=== PATIENT | female | born 1975 ===

== ENCOUNTER 2024-01-18 06:16 | Emergency (ER) | payer OTHER, SELFPAY ==
[2024-01-18 06:23] VITALS: BP 135/85; BMI 39.7
--- NOTE | 2024-01-18 06:36 | EDRN ---
the pt is calm, pleasant, and cooperative with staff, the pt was compliant with changing into paper scrubs with this RN and Frances PCT present, the pt changed into paper scrubs herself, the pt keeps repeating to this RN, 'I miss my daddy, i just
want to go home and be with my daddy, i just want to , i miss my daddy i miss my daddy', the pt started to hysterically cry, this RN offered the pts tissues and tried to talk the pt through deep breathing exercises, this RN noticed that the pt
has cut hernández on her left wrist, this RN asked the pt about them and the pt stated, 'Oh that's from last night i just wanted to see if the lord would take me, apparently not', no bleeding or drainage from left wrist cut site, the pts lips are dry
and cracked, one to one observation maintained, Dr. Kaiser made aware of the situation
--- NOTE | 2024-01-18 06:40 | EDRN ---
the pt continues to cry with her head in her hands stating to this RN, 'I just want to be with my daddy he was my strength he was my strength', the pt then quickly perked up and wiped her tears off and stated cheerfully, 'Okay so i'm all good now so
i can go home?', this RN notified the pt that she would have to be evaluated by the provider first, the pt is agreeable to this, one to one observation maintained, will continue to monitor the pt closely
[2024-01-18 06:51] LABS: % Basophils 1.4 % (0-2); % Eosinophils 2.6 % (0-6); % Immature Granulocytes 0.5 % (0-0.5); % Lymphocytes 34.9 % (20.5-51.1); % Monocytes 5.6 % (1.7-9.3); Absolute Basophils 0.1 10^3/uL (0-0.2); Absolute Eosinophils 0.2 10^3/uL (0-0.7); Absolute Lymphocytes 2.6 10^3/uL (1.2-3.4); Absolute Monocytes 0.4 10^3/uL (0.1-0.6); Hematocrit 39.8 % (37.0-47.0); Hemoglobin 13.8 g/dL (12.0-16.0); Mean Corp Hgb Conc. 34.7 g/dL (33.0-37.0); Mean Corpuscular Hgb 30.9 pg (27.0-31.0); Mean Corpuscular Volume 89.2 fL (81.0-99.0); Mean Platelet Volume 8.5 fL (7.4-10.4); Nucleated Red Blood Cells % 0 %; Platelet Count 367 10^3/uL (130-400); Red Blood Cell Count 4.46 10^6/uL (4.20-5.40); Red Cell Dist. Width 12.6 % (11.5-14.5); White Blood Cell Count 7.3 10^3/uL (4.8-10.8)
[2024-01-18] MEDS: NSS 1000 IV (07:02)
[2024-01-18 07:03] LABS: HCG, Serum Qualitative Screen Negative
[2024-01-18 07:06] LABS: ALT (SGPT) 19 U/L (0-35); AST (SGOT) 27 U/L (14-36); Acetaminophen < 10 ug/ml (10-30); Albumin 4.3 g/dl (3.5-5.0); Alcohol 154 mg/dl; Alkaline Phosphatase 87 U/L (38-126); Blood Urea Nitrogen 10 mg/dl (7-17); Calcium 8.8 mg/dl (8.4-10.2); Carbon Dioxide 25 mmol/L (22-30); Chloride 108 mmol/L (98-107); Estimated Creatinine Clearance 121 ml/min; Glucose 97 mg/dl (70-99); Potassium 3.7 mmol/L (3.5-5.1); Sodium 141 mmol/L (135-145); Total Bilirubin 0.2 mg/dl (0.2-1.3); Total Protein 6.9 g/dl (6.3-8.2); eGFR > 60.00
[2024-01-18 07:09] LABS: COVID-19 Antigen Negative (Negative)
--- NOTE | 2024-01-18 08:31 | ED.GENMED ---
History of Present Illness
General
Chief Complaint: Suicidal Ideation
Source: patient
Exam Limitations: none
Time Seen by Provider: 01/18/24 08:21
Travel History
Have you had any contact with someone who has COVID-19?: No
Do you have any symptoms of coronavirus? Fever > 100 degrees, chills, cough, shortness of breath, sore throat, loss of taste or smell, muscle aches, or headache?: No
History of Present Illness
History of Present Illness:
48-year-old female brought here after 302 paperwork is filled out. She lost her father 5 months ago. She has been having trouble dealing with it. She was expressing thoughts of killing herself to her . Her describes her rummaging
through the bags in the house looking for the firearms. She found a firearm but there is no ammunition. There is cuts noted on her left wrist. When this provider asked her about the cut she states she cut herself cooking. Patient denies current
suicidal thoughts or homicidal thoughts. She does admit to drinking least a bottle of wine last night. No chest pain or shortness of breath. She has a history of ADHD and is on Vyvanse.
Phy Exam
Physical Exam
Physical Exam:
General: Well-appearing female no acute respiratory distress HEENT: Normocephalic atraumatic
Psychiatric exam: Somewhat of a bizarre affect. Denying thoughts of harming self or others currently. Admits to depression. Downplaying cuts on wrist as if she was cooking. These do appear to be self-inflicted wounds in the transverse direction
across volar distal wrist. These are very superficial.
Heart: Regular rate and rhythm no murmurs
Lungs: Clear to auscultation bilaterally no wheezing
Extremities: No cyanosis
Course
Orders/Labs/Results
Orders:
Orders
01/18/24 06:22
Test Result ONCE
01/18/24 06:26
Acetaminophen Urgent
Alcohol Urgent
Beta Hcg Serum Qualitative Screen [HCG, Serum Qualitative Screen] Urgent
COVID-19 Antigen Urgent
Source: Nasal Swab
Complete Blood Count/With Diff Urgent
Comprehensive Metabolic Panel Urgent
01/18/24 06:34
1:1 Observation - Suicide/ Violent Behavior As Directed
01/18/24 06:48
0.9% Sodium Chloride 1000 ml [Nss] 1,000 ml IV BOLUS
01/18/24 10:11
Fentanyl, Urine Urgent
Urine Drug Abuse Screen Urgent
Date Specimen was Collected: 01/18/24
Time Specimen was Collected: 07:44
01/18/24 13:46
Acetaminophen [Tylenol] 650 mg PO NOW STA
Abnormal Lab Results
01/18/24 01/18/24
06:26 10:11
Chloride 108 H mmol/L
(98-107)
Acetaminophen < 10 L ug/ml
(10-30)
Ur Amphetamines Screen Positive H
(Negative)
01/18/24 06:26
01/18/24 06:26
Vital Signs
Initial and Last Documented VS:
Initial Vital Signs
Temp Pulse Resp BP Pulse Ox
98.1 F 93 16 135/85 97
01/18/24 06:23 01/18/24 06:23 01/18/24 06:23 01/18/24 06:23 01/18/24 06:23
Last Documented Vital Signs
Temp Pulse Resp BP Pulse Ox
98.1 F 93 16 135/85 97
01/18/24 06:23 01/18/24 06:23 01/18/24 06:23 01/18/24 06:23 01/18/24 06:23
MDM/Problems Addressed
Differential Diagnosis Includes:
Patient here under 302 for suicidal thoughts and threats. I suspect self-inflicted wounds to left wrist. Description on triage note said she was rummaging through bags to find firearms. Medically she was tested for COVID which is negative labs
reviewed without significant finding. Blood alcohol level is 154. Patient's father recently. She is at higher risk. Waiting for telepsych for evaluation suspect she would benefit from inpatient psychiatric care
*Critical Care Note
Total Time (30-74mins, 75-104mins- exclusive of procedures): Not Applicable
Update Note
Update Note:
Evaluated by telepsych who recommended upholding 302. Patient is at high risk for harming herself and she is unstable with her mental health. Will continue to uphold 302 and wait placement for inpatient psychiatric treatment. Medically she is
cleared and stable.
ED Attending Note
-
Portions of this chart may have been created with voice recognition software.� Occasional wrong word or��sound alike� substitutions may have occurred due to the inherent limitations of voice recognition software.
Discharge Plan
Departure
Patient Disposition: Psych Facility
Date of Disposition: 01/18/24
Time of Disposition: 10:16
Patient with high blood pressure during this ER visit?: No
Discharge Problem:
Suicidal ideation
Referrals:
UNKNOWN - PT NOT,INTERVIEWE [Family Provider] -
Activity Restrictions/Additional Instructions:
Please continue to seek treatment per inpatient psychiatric department
Interventions
Interventions:
*Risk Screen - Suicide Last Done: 01/18/24 06:23
*General Assessment Last Done: 01/18/24 06:23
*Neglect/Abuse Screening Last Done: 01/18/24 06:23
ED- Fall Risk Assessment Last Done: 01/18/24 06:23
*ED COVID-19 Vaccine History Last Done: 01/18/24 06:23
ED-Psychological Assessment Last Done: 01/18/24 06:23
Discharge Date and Time
Print Language: SRI LANKAN
--- NOTE | 2024-01-18 08:34 | EDRN ---
Domenic GUTIERRES currently at the pts bedside speaking with the pt, this RN called crisis for an update and the pts neighbor 302'd the pt, awaiting for psychiatric assessment
--- NOTE | 2024-01-18 08:38 | EDRN ---
crisis at the pts bedside speaking with the pt, the pt told Domenic GUTIERRES and benjamin that the cuts on her left wrist were from cooking last night, even though the pt admitted to this RN when she first came in that they were from last night,
this RN provided the pt with food and water and the pt is eating sandwich, the pt is calm, pleasant, and cooperative, no s/s of distress, the pt does keep attempting to open crisis door to exit facility, mental health nuclear security officer outside the
pts room and monitoring the pt, will continue to monitor the pt closely
[2024-01-18 10:32] LABS: Amphetamines Positive (Negative); Barbiturates Negative (Negative); Benzodiazepines Negative (Negative); Buprenorphine Negative (Negative); Cocaine Negative (Negative); Marijuana Negative (Negative); Methadone Negative (Negative); Methamphetamines Negative (Negative); Opiates Negative (Negative); Phencyclidine Negative (Negative); Tricyclic Antidepressants Negative (Negative)
[2024-01-18 10:54] LABS: Fentanyl, Urine Negative (Negative)
[2024-01-18] MEDS: TYLENOL 650 MG PO (13:48)
== END 2024-01-18 15:53 ==
LOC: EMR 06:16
PROVIDERS: EMERGENCY PHYSICIAN Emergency Medicine
DX: R45.851 Suicidal ideations (principal); F90.9 Attention-deficit hyperactivity disorder, unspecified type; Y90.6 Blood alcohol level of 120-199 mg/100 ml; Z11.52 Encounter for screening for COVID-19
CPT/HCPCS: 99285; 96360; 80053; 80143; 80306; 80307; 82077; 84703; 85025; 87811